=== PATIENT | female | born 1970 | race Caucasian/White ===

== ENCOUNTER → 2018-11-10 09:52 | Outpatient (CLI) | payer MEDICARE, SELFPAY ==
[2018-11-10 11:13] LABS: Add Manual Diff / Slide Review NO; Basophils Absolute Auto 0 /uL (0-100); Basophils Percent Auto 0.4 % (0-2); Eosinophils Absolute Auto 300 /uL (0-450); Eosinophils Percent Auto 3.3 % (2-4); Hematocrit 41.2 % (36-46); Hemoglobin 13.7 g/dL (12.0-16.0); Lymphocytes Absolute Auto 2300 /uL (1100-4500); Lymphocytes Percent Auto 23.3 % (25-40); Mean Corpuscular HGB Conc 33.3 % (30-36); Mean Corpuscular Hemoglobin 28.2 PG (26-34); Mean Corpuscular Volume 84.7 fL (80-100); Monocytes Absolute Auto 700 /uL (0-900); Monocytes Percent Auto 6.7 % (3-14); Neutrophils Absolute Auto 6500 /uL (1500-7000); Neutrophils Percent Auto 66.3 % (50-75); Platelet Count 262 X10^3/uL (150-400); Red Blood Cell Count 4.87 X10^6/uL (4.0-5.2); White Blood Cell Count 9.8 X10^3/uL (4.5-11.0)
[2018-11-10 12:04] LABS: TSH w/ Reflex to FT4 1.93 uIU/mL (0.47-4.68)
[2018-11-10 12:22] LABS: Vitamin B12 399 pg/mL (239-931)
== END ==
PROVIDERS: PCP Specialist; Visit Provider Family Medicine
DX: F32.9 Major depressive disorder, single episode, unspecified (principal); R53.83 Other fatigue
CPT/HCPCS: 36415; 82607; 84443; 85025

== ENCOUNTER 2019-02-01 11:33 | Emergency (ER) | payer MEDICARE, SELFPAY ==
--- NOTE | 2019-02-01 11:46 | DI.RAD.S_ITS ---
PROCEDURE: XR CHEST 2V INDICATIONS: chest pain short of breath TECHNIQUE: 2 views of the chest were acquired. COMPARISON: Chest x-ray dated 08/05/11. FINDINGS: Surgical changes and devices: None. Lungs and pleura: Lungs are clear. No pleural effusions or pneumothorax. Mediastinum: Mediastinal contours are normal. Heart size is normal. Bones and chest wall: No suspicious bony abnormalities. Soft tissues appear unremarkable. IMPRESSION: Unremarkable chest. No acute cardiopulmonary process is suspected. Dictated by: Christian Donnelly M.D. on 02/01/2019 at 11:16 Approved by: Christian Donnelly M.D. on 02/01/2019 at 11:18
[2019-02-01 12:41] LABS: Bacteria Urine None Seen
[2019-02-01 12:49] LABS: Culture Indicated Urine Cult Not Indicated; RBC Urine 1-5/HPF (0-5/HPF); Squamous Epithelial Cell Urine 1-5 /HPF (0-5/HPF); WBC Urine 0-1/HPF (0-5/HPF)
[2019-02-01 13:03] LABS: Add Manual Diff / Slide Review NO; Basophils Absolute Auto 100 /uL (0-100); Basophils Percent Auto 0.8 % (0-2); Eosinophils Absolute Auto 200 /uL (0-450); Eosinophils Percent Auto 1.4 % (2-4); Lymphocytes Absolute Auto 3200 /uL (1100-4500); Lymphocytes Percent Auto 26.5 % (25-40); Mean Corpuscular HGB Conc 34.1 % (30-36); Mean Corpuscular Hemoglobin 28.2 PG (26-34); Mean Corpuscular Volume 82.7 fL (80-100); Monocytes Absolute Auto 1200 /uL (0-900); Monocytes Percent Auto 10.1 % (3-14); Neutrophils Absolute Auto 7500 /uL (1500-7000); Neutrophils Percent Auto 61.2 % (50-75); Platelet Count 318 X10^3/uL (150-400); Red Blood Cell Count 4.95 X10^6/uL (4.0-5.2); Red Cell Distribution Width 14.4 % (11.6-14.8); White Blood Cell Count 12.2 X10^3/uL (4.5-11.0)
[2019-02-01 13:11] LABS: Creatine Kinase 68 U/L (30-135)
--- NOTE | 2019-02-01 13:11 | ED.CHESTPAIN ---
HPI - Chest Pain <Silva Pearson, TRAVEL WRITER-BC - Last Filed: 02/01/19 18:28> General Chief Complaint: Chest Pain Stated Complaint: chest pain/dizzy/sob x6 days Time Seen by Provider: 02/01/19 12:20 Source: patient and family Mode of arrival: ambulatory Limitations: no limitations History of Present Illness HPI narrative: The patient is a 48-year-old female Nonsmoker with history of depression, PTSD and chronic migraine who presents with multiple complaints for 7 days. She states she has been congested, had shortness of breath, no cough, right-sided chest pain, left-sided neck pain, jaw pain when yawning and hypoglycemic episodes for 1 week. She states she has not checked her blood sugar, but she know she is hypoglycemic because she feels weak. She states that she saw her primary care provider on the , who prescribed Augmentin for an upper respiratory infection. She states she has not taken the whole course of this. She states they also gave her nebulizer treatment in the office. She states she has not followed up with her primary care provider since feeling worse. She states that she has neck pain and chest pain upon deep inspiration. She states she is dizzy and woozy. She has been taking Sudafed, her antibiotics off and on, no nasal sprays or other [id number]-srhbrqp medications. She states that her migraine specialist has been changing her medications, but she is not exactly sure what the changes are. She denies any abdominal pain dysuria urgency or frequency. She states that her chest pain is on the right side of her lower ribs. The patient later told me that she thought was related to her anxiety. She did not take any of her anxiety medication. The patient denies any risk factors of clot such as recent surgery, recent travel, hormone use, etc or personal history of blood clots. Related Data Home Medications Medication Instructions Recorded Confirmed fluoxetine [Sarafem] #0 11/27/17 11/10/18 gabapentin [Neurontin] #0 11/27/17 11/10/18 montelukast #0 11/27/17 11/10/18 prochlorperazine maleate #0 11/27/17 11/10/18 [Compazine] prazosin 1 mg capsule 5 mg PO QHS cap 12/10/18 Previous Rx's Medication Instructions Recorded sumatriptan 6 mg/0.5 mL 6 mg SUBCUT PRN PRN #10 syr 06/03/18 subcutaneous pen injector propranolol 20 mg tablet 20 mg PO BID #90 tab 10/22/18 verapamil ER 120 mg 24 hr 120 mg PO DAILY #30 cap 11/10/18 capsule,extended release clonazepam 0.5 mg tablet 0.25 mg PO ONCE #10 tab 01/27/19 sumatriptan 100 mg tablet 100 mg PO ONCE #10 tab 01/27/19 verapamil ER 120 mg 24 hr 120 mg PO BID #60 cap 01/27/19 capsule,extended release hydroxyzine HCl 50 mg PO TID-QID PRN #20 tab 02/01/19 Allergies Allergy/AdvReac Type Severity Reaction Status Date / Time banana [BANANA] Allergy Unknown MOUTH Verified 01/27/19 13:39 BLISTERS ciprofloxacin [From CIPRO] Allergy Unknown STOMACH Verified 01/27/19 13:39 PAIN walnut [WALNUT] Allergy Unknown MOUTH Verified 01/27/19 13:39 BLISTERS Review of Systems [facility] - Last Filed: 02/01/19 18:28> Review of Systems GENERAL: See HPI HEENT: See HPI RESPIRATORY: See HPI CARDIOVASCULAR: See HPI GASTROINTESTINAL: Denies nausea, vomiting, abdominal pain, diarrhea, constipation, melena. : Denies dysuria, frequency, incontinence, hematuria, urinary retention. MUSCULOSKELETAL: denies weakness, joint pain, or bony pain SKIN: Denies rash, skin lesions, or other NEUROLOGIC: Denies weakness, headache, numbness, change in speech, confusion, seizures, incoordination. PSYCHIATRIC: No concerning psychosocial issues. 12 point review of systems is negative except for those stated above PFSH <VY Servin - Last Filed: 02/01/19 18:28> Social History Smoking Status: Never smoker Social History Smoking Status: Never smoker Exam <VY Servin - Last Filed: 02/01/19 18:28> Narrative Exam Narrative: GENERAL: Female lying on stretcher in no acute distress HEAD: Atraumatic. Normocephalic. No temporal or scalp tenderness. EYES: Pupils equal round and reactive. Extraocular motions intact. No scleral icterus. No injection or drainage. ENT: Nose without bleeding, purulent drainage or septal hematoma. Throat without erythema, tonsillar hypertrophy or exudate. Uvula midline. Airway patent. Bilateral cerumen impaction noted. No cobblestoning noted. NECK: Trachea midline. No JVD or lymphadenopathy. Supple, nontender, no meningeal signs. CARDIOVASCULAR: Regular rate and rhythm RESPIRATORY: Clear to auscultation. Breath sounds equal bilaterally. No wheezes, rales, or rhonchi. No cough. No increased respiratory effort. No stridor. No accessory muscle use. Slight pain on lateral chest wall compression. No pain on anterior posterior chest wall compression. GASTROINTESTINAL: Abdomen soft, non-tender, nondistended. No hepato-splenomegaly, or palpable masses. No guarding. EXTREMITIES: No clubbing, cyanosis, or edema. No joint tenderness, effusion, or edema noted. BACK: Nontender without deformity or crepitance. No flank tenderness. NEURO: AOx3. SKIN: No rash or erythema. Initial Vital Signs Initial Vital Signs: Vital Signs Temperature 98.8 F 02/01/19 13:32 Pulse Rate 63 02/01/19 13:32 Respiratory Rate 14 02/01/19 13:32 Blood Pressure 116/54 L 02/01/19 13:32 Pulse Oximetry 100 02/01/19 13:32 <Kitty Pat DO - Last Filed: 02/05/19 10:53> Initial Vital Signs Initial Vital Signs: Vital Signs Temperature 98.8 F 02/01/19 13:32 Pulse Rate 63 02/01/19 13:32 Respiratory Rate 14 02/01/19 13:32 Blood Pressure 116/54 L 02/01/19 13:32 Pulse Oximetry 100 02/01/19 13:32 Scores <ERICK Servin - Last Filed: 02/01/19 18:28> PERC Score Age greater than or equal to 50 years: Yes Heart rate greater than or equal to 100 bpm: Yes Room Air O2 Sat less than 95%: Yes Unilateral leg swelling: Yes Recent trauma or surgery: Yes Hemoptysis: Yes Prior PE or DVT: Yes Hormone Use: Yes Total PERC Score: 8 Wells' Criteria for PE Clinical signs and symptoms of PE: No PE is #1 Dx or equally likely: No Heart rate > 100: No Immobilization at least 3 days or surg in previous 4 weeks: No History of PE or DVT: No Hemoptysis: No Malignancy w/Treatment within 6 months or palliative: No Wells' PE Score total: 0 Course <JV Servin-BC - Last Filed: 02/01/19 18:28> Orders Ordered: Discontinued Medications Albuterol/Ipratropium (Duoneb) 3 ml INH NOW ONE Stop: 02/01/19 11:46 Last Admin: 02/01/19 14:20 Dose: Not Given Albuterol/Ipratropium (Duoneb) 3 ml INH NOW ONE Stop: 02/01/19 15:41 Last Admin: 02/01/19 15:42 Dose: 3 ml Hydroxyzine Pamoate (Vistaril) 50 mg PO NOW ONE Stop: 02/01/19 16:27 Last Admin: 02/01/19 16:48 Dose: 50 mg Ketorolac Tromethamine (Toradol) 30 mg IV NOW ONE Stop: 02/01/19 14:01 Last Admin: 02/01/19 14:21 Dose: 30 mg Vital Signs - 8 hr 02/01/19 13:32 02/01/19 14:16 02/01/19 14:46 Temperature 98.8 F Pulse Rate 63 75 69 Respiratory Rate 14 18 12 Blood Pressure 116/54 L Blood Pressure [Left Arm] 108/55 L 118/58 L Pulse Oximetry 100 100 97 02/01/19 15:42 02/01/19 17:00 Temperature Pulse Rate 65 Respiratory Rate 16 Blood Pressure Blood Pressure [Left Arm] 116/60 Pulse Oximetry 96 98 <Kitty Pat DO - Last Filed: 02/05/19 10:53> Orders Ordered: Discontinued Medications Albuterol/Ipratropium (Duoneb) 3 ml INH NOW ONE Stop: 02/01/19 11:46 Last Admin: 02/01/19 14:20 Dose: Not Given Albuterol/Ipratropium (Duoneb) 3 ml INH NOW ONE Stop: 02/01/19 15:41 Last Admin: 02/01/19 15:42 Dose: 3 ml Hydroxyzine Pamoate (Vistaril) 50 mg PO NOW ONE Stop: 02/01/19 16:27 Last Admin: 02/01/19 16:48 Dose: 50 mg Ketorolac Tromethamine (Toradol) 30 mg IV NOW ONE Stop: 02/01/19 14:01 Last Admin: 02/01/19 14:21 Dose: 30 mg Vital Signs - 8 hr 02/01/19 13:32 02/01/19 14:16 02/01/19 14:46 Temperature 98.8 F Pulse Rate 63 75 69 Respiratory Rate 14 18 12 Blood Pressure 116/54 L Blood Pressure [Left Arm] 108/55 L 118/58 L Pulse Oximetry 100 100 97 02/01/19 15:42 02/01/19 17:00 Temperature Pulse Rate 65 Respiratory Rate 16 Blood Pressure Blood Pressure [Left Arm] 116/60 Pulse Oximetry 96 98 MDM - Chest Pain <JV Servin-BC - Last Filed: 02/01/19 18:28> Lab Data Result diagrams: 02/01/19 12:45 02/01/19 12:45 Lab Results 02/01/19 02/01/19 02/01/19 Range/Units 12:10 12:10 12:45 WBC 12.2 H (4.5-11.0) X10^3/uL RBC 4.95 (4.0-5.2) X10^6/uL Hgb 14.0 (12.0-16.0) g/dL Hct 41.0 (36-46) % MCV 82.7 (80-100) fL MCH 28.2 (26-34) PG MCHC 34.1 (30-36) % RDW 14.4 (11.6-14.8) % Plt Count 318 (150-400) X10^3/uL Neut % (Auto) 61.2 (50-75) % Lymph % (Auto) 26.5 (25-40) % [place] % (Auto) 10.1 (3-14) % Eos % (Auto) 1.4 L (2-4) % Baso % (Auto) 0.8 (0-2) % Neut # (Auto) 7500 H (7786-6893) /uL Lymph # (Auto) 3200 (2232-3679) /uL [place] # (Auto) 1200 H (0-900) /uL Eos # (Auto) 200 (0-450) /uL Baso # (Auto) 100 (0-100) /uL Sodium (137-145) mmol/L Potassium (3.4-5.1) mmol/L Chloride (98-107) mmol/L Carbon Dioxide (22-32) mmol/L BUN (7-17) mg/dL Creatinine (0.52-1.04) mg/dL Estimated GFR (>60) mL/min BUN/Creatinine Ratio (6-22) Glucose (70-100) mg/dL Calcium (8.4-10.2) mg/dL Total Bilirubin (0.2-1.3) mg/dL AST (14-36) IU/L ALT (9-52) IU/L Alkaline Phosphatase (38-126) U/L Total Creatine Kinase (30-135) U/L CK-MB (CK-2) CK-MB (CK-2) Rel Index Troponin I (0.01-0.034) ng/mL B-Natriuretic Peptide < 100 (<100) Total Protein (6.3-8.2) g/dL Albumin (3.5-5.0) g/dL Globulin (1.7-4.1) g/dL Albumin/Globulin Ratio (1.0-2.8) Procalcitonin (<0.5) ng/mL Urine RBC 1-5/hpf (0-5/HPF) Urine WBC 0-1/hpf (0-5/HPF) Ur Squamous Epith Cells 1-5 /hpf (0-5/HPF) Urine Bacteria None seen (None) Ur Culture Indicated? Cult not indicated Urine Test Negative (Negative) 02/01/19 02/01/19 02/01/19 Range/Units 12:45 12:45 12:45 WBC (4.5-11.0) X10^3/uL RBC (4.0-5.2) X10^6/uL Hgb (12.0-16.0) g/dL Hct (36-46) % MCV (80-100) fL MCH (26-34) PG MCHC (30-36) % RDW (11.6-14.8) % Plt Count (150-400) X10^3/uL Neut % (Auto) (50-75) % Lymph % (Auto) (25-40) % [place] % (Auto) (3-14) % Eos % (Auto) (2-4) % Baso % (Auto) (0-2) % Neut # (Auto) (6696-8700) /uL Lymph # (Auto) (2343-2113) /uL [place] # (Auto) (0-900) /uL Eos # (Auto) (0-450) /uL Baso # (Auto) (0-100) /uL Sodium 141 (137-145) mmol/L Potassium 3.9 (3.4-5.1) mmol/L Chloride 107 (98-107) mmol/L Carbon Dioxide 23 (22-32) mmol/L BUN 17 (7-17) mg/dL Creatinine 0.90 (0.52-1.04) mg/dL Estimated GFR > 60.0 (>60) mL/min BUN/Creatinine Ratio 18.9 (6-22) Glucose 92 (70-100) mg/dL Calcium 9.5 (8.4-10.2) mg/dL Total Bilirubin 0.5 (0.2-1.3) mg/dL AST 30 (14-36) IU/L ALT 42 (9-52) IU/L Alkaline Phosphatase 90 (38-126) U/L Total Creatine Kinase 68 (30-135) U/L CK-MB (CK-2) TNP CK-MB (CK-2) Rel Index TNP Troponin I < 0.012 (0.01-0.034) ng/mL B-Natriuretic Peptide (<100) Total Protein 7.7 (6.3-8.2) g/dL Albumin 4.0 (3.5-5.0) g/dL Globulin 3.7 (1.7-4.1) g/dL Albumin/Globulin Ratio 1.1 (1.0-2.8) Procalcitonin < 0.05 (<0.5) ng/mL Urine RBC (0-5/HPF) Urine WBC (0-5/HPF) Ur Squamous Epith Cells (0-5/HPF) Urine Bacteria (None) Ur Culture Indicated? Urine Test (Negative) 02/01/19 Range/Units 15:33 WBC (4.5-11.0) X10^3/uL RBC (4.0-5.2) X10^6/uL Hgb (12.0-16.0) g/dL Hct (36-46) % MCV (80-100) fL MCH (26-34) PG MCHC (30-36) % RDW (11.6-14.8) % Plt Count (150-400) X10^3/uL Neut % (Auto) (50-75) % Lymph % (Auto) (25-40) % [place] % (Auto) (3-14) % Eos % (Auto) (2-4) % Baso % (Auto) (0-2) % Neut # (Auto) (4354-1724) /uL Lymph # (Auto) (4221-4324) /uL [place] # (Auto) (0-900) /uL Eos # (Auto) (0-450) /uL Baso # (Auto) (0-100) /uL Sodium (137-145) mmol/L Potassium (3.4-5.1) mmol/L Chloride (98-107) mmol/L Carbon Dioxide (22-32) mmol/L BUN (7-17) mg/dL Creatinine (0.52-1.04) mg/dL Estimated GFR (>60) mL/min BUN/Creatinine Ratio (6-22) Glucose (70-100) mg/dL Calcium (8.4-10.2) mg/dL Total Bilirubin (0.2-1.3) mg/dL AST (14-36) IU/L ALT (9-52) IU/L Alkaline Phosphatase (38-126) U/L Total Creatine Kinase 68 (30-135) U/L CK-MB (CK-2) TNP CK-MB (CK-2) Rel Index TNP Troponin I < 0.012 (0.01-0.034) ng/mL B-Natriuretic Peptide (<100) Total Protein (6.3-8.2) g/dL Albumin (3.5-5.0) g/dL Globulin (1.7-4.1) g/dL Albumin/Globulin Ratio (1.0-2.8) Procalcitonin (<0.5) ng/mL Urine RBC (0-5/HPF) Urine WBC (0-5/HPF) Ur Squamous Epith Cells (0-5/HPF) Urine Bacteria (None) Ur Culture Indicated? Urine Test (Negative) Urine Dip Bedside Urine Glucose Negative Bedside Urine Bilirubin - Negative Bedside Urine Ketone - Negative Urine Specific [place] 1.015 Bedside Urine Occult Blood +/- Bedside Urine pH 8.5 Bedside Urine Protein - Negative Bedside Urine Urobilinogen - Negative Bedside Urine Nitrite - Negative Bedside Urine Leukocytes - Negative Esterase Imaging Data Chest x-ray: Radiologist's impression: [address] [address] XRay Report Signed Patient: Katia Daigle [facility]#: [id number] : 1970Acct:[id number] Age/Sex: 48 / FDate of Service: 02/01/19 Loc: ED Accession Number: [id number] Procedure: XR chest 2V Ordering Provider: Kitty Pat D.O. PROCEDURE: XR CHEST 2V INDICATIONS: chest pain short of breath TECHNIQUE: 2 views of the chest were acquired. COMPARISON: Chest x-ray dated 08/05/11. FINDINGS: Surgical changes and devices: None. Lungs and pleura: Lungs are clear. No pleural effusions or pneumothorax. Mediastinum: Mediastinal contours are normal. Heart size is normal. Bones and chest wall: No suspicious bony abnormalities. Soft tissues appear unremarkable. IMPRESSION: Unremarkable chest. No acute cardiopulmonary process is suspected. Dictated by: Christian Donnelly M.D. on 02/01/2019 at 11:16 Approved by: Christian Donnelly M.D. on 02/01/2019 at 11:18 ECG Data Attestation: I personally reviewed and interpreted this ECG as follows: Interpretation: Sinus rhythm. Ventricular rate 67. No ST elevation or depression. No ectopy noted. viewed by Dr Pat MDM Narrative Medical decision making narrative: The patient is a 48-year-old female who presents with various complaints midway through being treated for an upper respiratory infection with Augmentin. She states she has chest pain, but that improved with Toradol use she had a normal EKG and 2-troponins. She had a normal chest x-ray. She did complain of shortness of breath, but later stated that she thinks that is due to anxiety. This went away after Vistaril administration. Her cerumen impactions were flushed in the emergency department she felt her dizziness improved. The patient later requested to be discharged. She stated she did not want any further workup at this point time. She felt much improved after Vistaril. I did give her a prescription of it. I discussed at length return precautions to the emergency department including chest pain, shortness of breath, concern of heart attack or stroke or acute concerns. Encouraged patient to follow up with primary care physician tomorrow. She had no questions or concerns upon discharge remained hemodynamically stable and non toxic appearing throughout her stay in the ER. <Kitty Pat, DO - Last Filed: 02/05/19 10:53> Lab Data Lab Results 02/01/19 02/01/19 02/01/19 Range/Units 12:10 12:10 12:45 WBC 12.2 H (4.5-11.0) X10^3/uL RBC 4.95 (4.0-5.2) X10^6/uL Hgb 14.0 (12.0-16.0) g/dL Hct 41.0 (36-46) % MCV 82.7 (80-100) fL MCH 28.2 (26-34) PG MCHC 34.1 (30-36) % RDW 14.4 (11.6-14.8) % Plt Count 318 (150-400) X10^3/uL Neut % (Auto) 61.2 (50-75) % Lymph % (Auto) 26.5 (25-40) % [place] % (Auto) 10.1 (3-14) % Eos % (Auto) 1.4 L (2-4) % Baso % (Auto) 0.8 (0-2) % Neut # (Auto) 7500 H (5768-9676) /uL Lymph # (Auto) 3200 (8808-1182) /uL [place] # (Auto) 1200 H (0-900) /uL Eos # (Auto) 200 (0-450) /uL Baso # (Auto) 100 (0-100) /uL Sodium (137-145) mmol/L Potassium (3.4-5.1) mmol/L Chloride (98-107) mmol/L Carbon Dioxide (22-32) mmol/L BUN (7-17) mg/dL Creatinine (0.52-1.04) mg/dL Estimated GFR (>60) mL/min BUN/Creatinine Ratio (6-22) Glucose (70-100) mg/dL Calcium (8.4-10.2) mg/dL Total Bilirubin (0.2-1.3) mg/dL AST (14-36) IU/L ALT (9-52) IU/L Alkaline Phosphatase (38-126) U/L Total Creatine Kinase (30-135) U/L CK-MB (CK-2) CK-MB (CK-2) Rel Index Troponin I (0.01-0.034) ng/mL B-Natriuretic Peptide < 100 (<100) Total Protein (6.3-8.2) g/dL Albumin (3.5-5.0) g/dL Globulin (1.7-4.1) g/dL Albumin/Globulin Ratio (1.0-2.8) Procalcitonin (<0.5) ng/mL Urine RBC 1-5/hpf (0-5/HPF) Urine WBC 0-1/hpf (0-5/HPF) Ur Squamous Epith Cells 1-5 /hpf (0-5/HPF) Urine Bacteria None seen (None) Ur Culture Indicated? Cult not indicated Urine Test Negative (Negative) 02/01/19 02/01/19 02/01/19 Range/Units 12:45 12:45 12:45 WBC (4.5-11.0) X10^3/uL RBC (4.0-5.2) X10^6/uL Hgb (12.0-16.0) g/dL Hct (36-46) % MCV (80-100) fL MCH (26-34) PG MCHC (30-36) % RDW (11.6-14.8) % Plt Count (150-400) X10^3/uL Neut % (Auto) (50-75) % Lymph % (Auto) (25-40) % [place] % (Auto) (3-14) % Eos % (Auto) (2-4) % Baso % (Auto) (0-2) % Neut # (Auto) (1967-4182) /uL Lymph # (Auto) (1698-1433) /uL [place] # (Auto) (0-900) /uL Eos # (Auto) (0-450) /uL Baso # (Auto) (0-100) /uL Sodium 141 (137-145) mmol/L Potassium 3.9 (3.4-5.1) mmol/L Chloride 107 (98-107) mmol/L Carbon Dioxide 23 (22-32) mmol/L BUN 17 (7-17) mg/dL Creatinine 0.90 (0.52-1.04) mg/dL Estimated GFR > 60.0 (>60) mL/min BUN/Creatinine Ratio 18.9 (6-22) Glucose 92 (70-100) mg/dL Calcium 9.5 (8.4-10.2) mg/dL Total Bilirubin 0.5 (0.2-1.3) mg/dL AST 30 (14-36) IU/L ALT 42 (9-52) IU/L Alkaline Phosphatase 90 (38-126) U/L Total Creatine Kinase 68 (30-135) U/L CK-MB (CK-2) TNP CK-MB (CK-2) Rel Index TNP Troponin I < 0.012 (0.01-0.034) ng/mL B-Natriuretic Peptide (<100) Total Protein 7.7 (6.3-8.2) g/dL Albumin 4.0 (3.5-5.0) g/dL Globulin 3.7 (1.7-4.1) g/dL Albumin/Globulin Ratio 1.1 (1.0-2.8) Procalcitonin < 0.05 (<0.5) ng/mL Urine RBC (0-5/HPF) Urine WBC (0-5/HPF) Ur Squamous Epith Cells (0-5/HPF) Urine Bacteria (None) Ur Culture Indicated? Urine Test (Negative) 02/01/19 Range/Units 15:33 WBC (4.5-11.0) X10^3/uL RBC (4.0-5.2) X10^6/uL Hgb (12.0-16.0) g/dL Hct (36-46) % MCV (80-100) fL MCH (26-34) PG MCHC (30-36) % RDW (11.6-14.8) % Plt Count (150-400) X10^3/uL Neut % (Auto) (50-75) % Lymph % (Auto) (25-40) % [place] % (Auto) (3-14) % Eos % (Auto) (2-4) % Baso % (Auto) (0-2) % Neut # (Auto) (0578-3198) /uL Lymph # (Auto) (9112-2950) /uL [place] # (Auto) (0-900) /uL Eos # (Auto) (0-450) /uL Baso # (Auto) (0-100) /uL Sodium (137-145) mmol/L Potassium (3.4-5.1) mmol/L Chloride (98-107) mmol/L Carbon Dioxide (22-32) mmol/L BUN (7-17) mg/dL Creatinine (0.52-1.04) mg/dL Estimated GFR (>60) mL/min BUN/Creatinine Ratio (6-22) Glucose (70-100) mg/dL Calcium (8.4-10.2) mg/dL Total Bilirubin (0.2-1.3) mg/dL AST (14-36) IU/L ALT (9-52) IU/L Alkaline Phosphatase (38-126) U/L Total Creatine Kinase 68 (30-135) U/L CK-MB (CK-2) TNP CK-MB (CK-2) Rel Index TNP Troponin I < 0.012 (0.01-0.034) ng/mL B-Natriuretic Peptide (<100) Total Protein (6.3-8.2) g/dL Albumin (3.5-5.0) g/dL Globulin (1.7-4.1) g/dL Albumin/Globulin Ratio (1.0-2.8) Procalcitonin (<0.5) ng/mL Urine RBC (0-5/HPF) Urine WBC (0-5/HPF) Ur Squamous Epith Cells (0-5/HPF) Urine Bacteria (None) Ur Culture Indicated? Urine Test (Negative) Urine Dip Bedside Urine Glucose Negative Bedside Urine Bilirubin - Negative Bedside Urine Ketone - Negative Urine Specific [place] 1.015 Bedside Urine Occult Blood +/- Bedside Urine pH 8.5 Bedside Urine Protein - Negative Bedside Urine Urobilinogen - Negative Bedside Urine Nitrite - Negative Bedside Urine Leukocytes - Negative Esterase ECG Data Attestation: I personally reviewed and interpreted this ECG as follows: Prior ECG tracings: not available for review Interpretation: Artifact noted sinus rhythm rate [address] changes Discharge Plan Departure Patient Disposition: Home Clinical Impression: Atypical chest pain, Breath shortness, Bilateral impacted cerumen Discharge Date/Time: 02/01/19 17:36 Interventions: ED Discharge Assessment Last Done: 02/01/19 17:36 Instructions: DI for Cerumen Impaction, DI for Atypical Chest Pain, DI for Shortness of Breath Activity Restrictions/Additional Instructions: Today you had two normal sets of heart enzymes, a normal EKG, normal chest x-ray. We tried a medication for anxiety which seemed to help your shortness of breath. I believe that a lot of her symptoms are related to the upper respiratory tract infection your being treated for by your primary care provider. Please continue this antibiotic. I also suggest adding a Neti pot and Flonase. You can take the as needed medication for anxiety. Do not combine with Benadryl or other antihistamines. Come back to the emergency department for any acute concerns such as chest pain shortness of breath concern of heart attack or stroke. Please follow up with primary care provider soon as possible. Please rest and push fluids at home. Prescriptions: New hydroxyzine HCl 50 mg tablet 50 mg PO TID-QID PRN (Reason: anxiety) Qty: 20 RF: 0 No Action prochlorperazine maleate [Compazine] 10 MG tablet Qty: 0 RF: 0 gabapentin [Neurontin] 400 MG capsule Qty: 0 RF: 0 montelukast 10 MG tablet Qty: 0 RF: 0 fluoxetine [Sarafem] 20 MG tablet Qty: 0 RF: 0 sumatriptan succinate 6 mg/0.5 mL pen injector 6 mg SUBCUT PRN PRN (Reason: migraine headache) Qty: 10 RF: 3 propranolol 20 mg tablet 20 mg PO BID Qty: 90 RF: 2 verapamil 120 mg capsule,ext rel. pellets 24 hr 120 mg PO DAILY Qty: 30 RF: 2 prazosin 1 mg capsule 5 mg PO QHS RF: 0 clonazepam 0.5 mg tablet 0.25 mg PO ONCE Qty: 10 RF: 1 sumatriptan succinate 100 mg tablet 100 mg PO ONCE Qty: 10 RF: 1 verapamil 120 mg capsule,ext rel. pellets 24 hr 120 mg PO BID Qty: 60 RF: 2 Referrals: Waqar Ortiz MD [Primary Care Provider] - <Kitty Pat DO - Last Filed: 02/05/19 10:53> [facility] ED Attending [employer] Attestation: I was immediately available in the department for consultation. Documentation has been reviewed. I agree with assessment and plan.
[2019-02-01 13:12] LABS: Alanine Aminotransferase 42 IU/L (9-52); Albumin Globulin Ratio 1.1 (1.0-2.8); Alkaline Phosphatase 90 U/L (38-126); Aspartate Aminotransferase 30 IU/L (14-36); BUN Creatinine Ratio 18.9 (6-22); Bilirubin Total 0.5 mg/dL (0.2-1.3); Blood Urea Nitrogen 17 mg/dL (7-17); Calcium 9.5 mg/dL (8.4-10.2); Carbon Dioxide 23 mmol/L (22-32); Chloride 107 mmol/L (98-107); Estimated Glomerular Filt Rate > 60.0 mL/min (>60); Globulin 3.7 g/dL (1.7-4.1); Glucose 92 mg/dL (70-100); HEMOLYSIS < 15 (0-50); Potassium 3.9 mmol/L (3.4-5.1); Sodium 141 mmol/L (137-145); Total Protein 7.7 g/dL (6.3-8.2)
--- NOTE | 2019-02-01 13:14 | ED_ITS ---
HPI - Chest Pain <Silva Pearson, FLIGHT HOSTESS-BC - Last Filed: 02/01/19 18:28> General Chief Complaint: Chest Pain Stated Complaint: chest pain/dizzy/sob x6 days Time Seen by Provider: 02/01/19 12:20 Source: patient and family Mode of arrival: ambulatory Limitations: no limitations History of Present Illness HPI narrative: The patient is a 48-year-old female Nonsmoker with history of depression, PTSD and chronic migraine who presents with multiple complaints for 7 days. She states she has been congested, had shortness of breath, no cough, right-sided chest pain, left-sided neck pain, jaw pain when yawning and hypoglycemic episodes for 1 week. She states she has not checked her blood sugar, but she know she is hypoglycemic because she feels weak. She states that she saw her primary care provider on the , who prescribed Augmentin for an upper respiratory infection. She states she has not taken the whole course of this. She states they also gave her nebulizer treatment in the office. She states she has not followed up with her primary care provider since feeling worse. She states that she has neck pain and chest pain upon deep inspiration. She states she is dizzy and woozy. She has been taking Sudafed, her antibiotics off and on, no nasal sprays or other [id number] medications. She states that her migraine specialist has been changing her medications, but she is not exactly sure what the changes are. She denies any abdominal pain dysuria urgency or frequency. She states that her chest pain is on the right side of her lower ribs. The patient later told me that she thought was related to her anxiety. She did not take any of her anxiety medication. The patient denies any risk factors of clot such as recent surgery, recent travel, hormone use, etc or personal history of blood clots. Related Data Home Medications Medication Instructions Recorded Confirmed fluoxetine [Sarafem] #0 11/27/17 11/10/18 gabapentin [Neurontin] #0 11/27/17 11/10/18 montelukast #0 11/27/17 11/10/18 prochlorperazine maleate #0 11/27/17 11/10/18 [Compazine] prazosin 1 mg capsule 5 mg PO QHS cap 12/10/18 Previous Rx's Medication Instructions Recorded sumatriptan 6 mg/0.5 mL 6 mg SUBCUT PRN PRN #10 syr 06/03/18 subcutaneous pen injector propranolol 20 mg tablet 20 mg PO BID #90 tab 10/22/18 verapamil ER 120 mg 24 hr 120 mg PO DAILY #30 cap 11/10/18 capsule,extended release clonazepam 0.5 mg tablet 0.25 mg PO ONCE #10 tab 01/27/19 sumatriptan 100 mg tablet 100 mg PO ONCE #10 tab 01/27/19 verapamil ER 120 mg 24 hr 120 mg PO BID #60 cap 01/27/19 capsule,extended release hydroxyzine HCl 50 mg PO TID-QID PRN #20 tab 02/01/19 Allergies Allergy/AdvReac Type Severity Reaction Status Date / Time banana [BANANA] Allergy Unknown MOUTH Verified 01/27/19 13:39 BLISTERS ciprofloxacin [From CIPRO] Allergy Unknown STOMACH Verified 01/27/19 13:39 PAIN walnut [WALNUT] Allergy Unknown MOUTH Verified 01/27/19 13:39 BLISTERS Review of Systems <[facility] - Last Filed: 02/01/19 18:28> Review of Systems GENERAL: See HPI HEENT: See HPI RESPIRATORY: See HPI CARDIOVASCULAR: See HPI GASTROINTESTINAL: Denies nausea, vomiting, abdominal pain, diarrhea, constipation, melena. : Denies dysuria, frequency, incontinence, hematuria, urinary retention. MUSCULOSKELETAL: denies weakness, joint pain, or bony pain SKIN: Denies rash, skin lesions, or other NEUROLOGIC: Denies weakness, headache, numbness, change in speech, confusion, seizures, incoordination. PSYCHIATRIC: No concerning psychosocial issues. 12 point review of systems is negative except for those stated above PFSH <VY Servin - Last Filed: 02/01/19 18:28> Social History Smoking Status: Never smoker Social History Smoking Status: Never smoker Exam <VY Servin - Last Filed: 02/01/19 18:28> Narrative Exam Narrative: GENERAL: Female lying on stretcher in no acute distress HEAD: Atraumatic. Normocephalic. No temporal or scalp tenderness. EYES: Pupils equal round and reactive. Extraocular motions intact. No scleral icterus. No injection or drainage. ENT: Nose without bleeding, purulent drainage or septal hematoma. Throat without erythema, tonsillar hypertrophy or exudate. Uvula midline. Airway patent. Bilateral cerumen impaction noted. No cobblestoning noted. NECK: Trachea midline. No JVD or lymphadenopathy. Supple, nontender, no meningeal signs. CARDIOVASCULAR: Regular rate and rhythm RESPIRATORY: Clear to auscultation. Breath sounds equal bilaterally. No wheezes, rales, or rhonchi. No cough. No increased respiratory effort. No stridor. No accessory muscle use. Slight pain on lateral chest wall compression. No pain on anterior posterior chest wall compression. GASTROINTESTINAL: Abdomen soft, non-tender, nondistended. No hepato- splenomegaly, or palpable masses. No guarding. EXTREMITIES: No clubbing, cyanosis, or edema. No joint tenderness, effusion, or edema noted. BACK: Nontender without deformity or crepitance. No flank tenderness. NEURO: AOx3. SKIN: No rash or erythema. Initial Vital Signs Initial Vital Signs: Vital Signs Temperature 98.8 F 02/01/19 13:32 Pulse Rate 63 02/01/19 13:32 Respiratory Rate 14 02/01/19 13:32 Blood Pressure 116/54 L 02/01/19 13:32 Pulse Oximetry 100 02/01/19 13:32 <Kitty Pat DO - Last Filed: 02/05/19 10:53> Initial Vital Signs Initial Vital Signs: Vital Signs Temperature 98.8 F 02/01/19 13:32 Pulse Rate 63 02/01/19 13:32 Respiratory Rate 14 02/01/19 13:32 Blood Pressure 116/54 L 02/01/19 13:32 Pulse Oximetry 100 02/01/19 13:32 Scores <ERICK Servin - Last Filed: 02/01/19 18:28> PERC Score Age greater than or equal to 50 years: Yes Heart rate greater than or equal to 100 bpm: Yes Room Air O2 Sat less than 95%: Yes Unilateral leg swelling: Yes Recent trauma or surgery: Yes Hemoptysis: Yes Prior PE or DVT: Yes Hormone Use: Yes Total PERC Score: 8 Wells' Criteria for PE Clinical signs and symptoms of PE: No PE is #1 Dx or equally likely: No Heart rate > 100: No Immobilization at least 3 days or surg in previous 4 weeks: No History of PE or DVT: No Hemoptysis: No Malignancy w/Treatment within 6 months or palliative: No Wells' PE Score total: 0 Course <JV Servin-BC - Last Filed: 02/01/19 18:28> Orders Ordered: Discontinued Medications Albuterol/Ipratropium (Duoneb) 3 ml INH NOW ONE Stop: 02/01/19 11:46 Last Admin: 02/01/19 14:20 Dose: Not Given Albuterol/Ipratropium (Duoneb) 3 ml INH NOW ONE Stop: 02/01/19 15:41 Last Admin: 02/01/19 15:42 Dose: 3 ml Hydroxyzine Pamoate (Vistaril) 50 mg PO NOW ONE Stop: 02/01/19 16:27 Last Admin: 02/01/19 16:48 Dose: 50 mg Ketorolac Tromethamine (Toradol) 30 mg IV NOW ONE Stop: 02/01/19 14:01 Last Admin: 02/01/19 14:21 Dose: 30 mg Vital Signs - 8 hr 02/01/19 13:32 02/01/19 14:16 02/01/19 14:46 Temperature 98.8 F Pulse Rate 63 75 69 Respiratory Rate 14 18 12 Blood Pressure 116/54 L Blood Pressure [Left Arm] 108/55 L 118/58 L Pulse Oximetry 100 100 97 02/01/19 15:42 02/01/19 17:00 Temperature Pulse Rate 65 Respiratory Rate 16 Blood Pressure Blood Pressure [Left Arm] 116/60 Pulse Oximetry 96 98 <Kitty Pat DO - Last Filed: 02/05/19 10:53> Orders Ordered: Discontinued Medications Albuterol/Ipratropium (Duoneb) 3 ml INH NOW ONE Stop: 02/01/19 11:46 Last Admin: 02/01/19 14:20 Dose: Not Given Albuterol/Ipratropium (Duoneb) 3 ml INH NOW ONE Stop: 02/01/19 15:41 Last Admin: 02/01/19 15:42 Dose: 3 ml Hydroxyzine Pamoate (Vistaril) 50 mg PO NOW ONE Stop: 02/01/19 16:27 Last Admin: 02/01/19 16:48 Dose: 50 mg Ketorolac Tromethamine (Toradol) 30 mg IV NOW ONE Stop: 02/01/19 14:01 Last Admin: 02/01/19 14:21 Dose: 30 mg Vital Signs - 8 hr 02/01/19 13:32 02/01/19 14:16 02/01/19 14:46 Temperature 98.8 F Pulse Rate 63 75 69 Respiratory Rate 14 18 12 Blood Pressure 116/54 L Blood Pressure [Left Arm] 108/55 L 118/58 L Pulse Oximetry 100 100 97 02/01/19 15:42 02/01/19 17:00 Temperature Pulse Rate 65 Respiratory Rate 16 Blood Pressure Blood Pressure [Left Arm] 116/60 Pulse Oximetry 96 98 MDM - Chest Pain <JV Servin-BC - Last Filed: 02/01/19 18:28> Lab Data Result diagrams: 02/01/19 12:45 02/01/19 12:45 Lab Results 02/01/19 02/01/19 02/01/19 Range/Units 12:10 12:10 12:45 WBC 12.2 H (4.5-11.0) X10^3/uL RBC 4.95 (4.0-5.2) X10^6/uL Hgb 14.0 (12.0-16.0) g/dL Hct 41.0 (36-46) % MCV 82.7 (80-100) fL MCH 28.2 (26-34) PG MCHC 34.1 (30-36) % RDW 14.4 (11.6-14.8) % Plt Count 318 (150-400) X10^3/uL Neut % (Auto) 61.2 (50-75) % Lymph % (Auto) 26.5 (25-40) % Lewis % (Auto) 10.1 (3-14) % Eos % (Auto) 1.4 L (2-4) % Baso % (Auto) 0.8 (0-2) % Neut # (Auto) 7500 H (9139-0822) /uL Lymph # (Auto) 3200 (9440-7753) /uL Lewis # (Auto) 1200 H (0-900) /uL Eos # (Auto) 200 (0-450) /uL Baso # (Auto) 100 (0-100) /uL Sodium (137-145) mmol/L Potassium (3.4-5.1) mmol/L Chloride (98-107) mmol/L Carbon Dioxide (22-32) mmol/L BUN (7-17) mg/dL Creatinine (0.52-1.04) mg/dL Estimated GFR (>60) mL/min BUN/Creatinine Ratio (6-22) Glucose (70-100) mg/dL Calcium (8.4-10.2) mg/dL Total Bilirubin (0.2-1.3) mg/dL AST (14-36) IU/L ALT (9-52) IU/L Alkaline Phosphatase (38-126) U/L Total Creatine Kinase (30-135) U/L CK-MB (CK-2) CK-MB (CK-2) Rel Index Troponin I (0.01-0.034) ng/mL B-Natriuretic Peptide < 100 (<100) Total Protein (6.3-8.2) g/dL Albumin (3.5-5.0) g/dL Globulin (1.7-4.1) g/dL Albumin/Globulin Ratio (1.0-2.8) Procalcitonin (<0.5) ng/mL Urine RBC 1-5/hpf (0-5/HPF) Urine WBC 0-1/hpf (0-5/HPF) Ur Squamous Epith Cells 1-5 /hpf (0-5/HPF) Urine Bacteria None seen (None) Ur Culture Indicated? Cult not indicated Urine Test Negative (Negative) 02/01/19 02/01/19 02/01/19 Range/Units 12:45 12:45 12:45 WBC (4.5-11.0) X10^3/uL RBC (4.0-5.2) X10^6/uL Hgb (12.0-16.0) g/dL Hct (36-46) % MCV (80-100) fL MCH (26-34) PG MCHC (30-36) % RDW (11.6-14.8) % Plt Count (150-400) X10^3/uL Neut % (Auto) (50-75) % Lymph % (Auto) (25-40) % Lewis % (Auto) (3-14) % Eos % (Auto) (2-4) % Baso % (Auto) (0-2) % Neut # (Auto) (4663-5150) /uL Lymph # (Auto) (7516-1681) /uL Lewis # (Auto) (0-900) /uL Eos # (Auto) (0-450) /uL Baso # (Auto) (0-100) /uL Sodium 141 (137-145) mmol/L Potassium 3.9 (3.4-5.1) mmol/L Chloride 107 (98-107) mmol/L Carbon Dioxide 23 (22-32) mmol/L BUN 17 (7-17) mg/dL Creatinine 0.90 (0.52-1.04) mg/dL Estimated GFR > 60.0 (>60) mL/min BUN/Creatinine Ratio 18.9 (6-22) Glucose 92 (70-100) mg/dL Calcium 9.5 (8.4-10.2) mg/dL Total Bilirubin 0.5 (0.2-1.3) mg/dL AST 30 (14-36) IU/L ALT 42 (9-52) IU/L Alkaline Phosphatase 90 (38-126) U/L Total Creatine Kinase 68 (30-135) U/L CK-MB (CK-2) TNP CK-MB (CK-2) Rel Index TNP Troponin I < 0.012 (0.01-0.034) ng/mL B-Natriuretic Peptide (<100) Total Protein 7.7 (6.3-8.2) g/dL Albumin 4.0 (3.5-5.0) g/dL Globulin 3.7 (1.7-4.1) g/dL Albumin/Globulin Ratio 1.1 (1.0-2.8) Procalcitonin < 0.05 (<0.5) ng/mL Urine RBC (0-5/HPF) Urine WBC (0-5/HPF) Ur Squamous Epith Cells (0-5/HPF) Urine Bacteria (None) Ur Culture Indicated? Urine Test (Negative) 02/01/19 Range/Units 15:33 WBC (4.5-11.0) X10^3/uL RBC (4.0-5.2) X10^6/uL Hgb (12.0-16.0) g/dL Hct (36-46) % MCV (80-100) fL MCH (26-34) PG MCHC (30-36) % RDW (11.6-14.8) % Plt Count (150-400) X10^3/uL Neut % (Auto) (50-75) % Lymph % (Auto) (25-40) % Lewis % (Auto) (3-14) % Eos % (Auto) (2-4) % Baso % (Auto) (0-2) % Neut # (Auto) (0166-7978) /uL Lymph # (Auto) (8565-9810) /uL Lewis # (Auto) (0-900) /uL Eos # (Auto) (0-450) /uL Baso # (Auto) (0-100) /uL Sodium (137-145) mmol/L Potassium (3.4-5.1) mmol/L Chloride (98-107) mmol/L Carbon Dioxide (22-32) mmol/L BUN (7-17) mg/dL Creatinine (0.52-1.04) mg/dL Estimated GFR (>60) mL/min BUN/Creatinine Ratio (6-22) Glucose (70-100) mg/dL Calcium (8.4-10.2) mg/dL Total Bilirubin (0.2-1.3) mg/dL AST (14-36) IU/L ALT (9-52) IU/L Alkaline Phosphatase (38-126) U/L Total Creatine Kinase 68 (30-135) U/L CK-MB (CK-2) TNP CK-MB (CK-2) Rel Index TNP Troponin I < 0.012 (0.01-0.034) ng/mL B-Natriuretic Peptide (<100) Total Protein (6.3-8.2) g/dL Albumin (3.5-5.0) g/dL Globulin (1.7-4.1) g/dL Albumin/Globulin Ratio (1.0-2.8) Procalcitonin (<0.5) ng/mL Urine RBC (0-5/HPF) Urine WBC (0-5/HPF) Ur Squamous Epith Cells (0-5/HPF) Urine Bacteria (None) Ur Culture Indicated? Urine Test (Negative) Urine Dip Bedside Urine Glucose Negative Bedside Urine Bilirubin - Negative Bedside Urine Ketone - Negative Urine Specific [place] 1.015 Bedside Urine Occult Blood +/- Bedside Urine pH 8.5 Bedside Urine Protein - Negative Bedside Urine Urobilinogen - Negative Bedside Urine Nitrite - Negative Bedside Urine Leukocytes - Negative Esterase Imaging Data Chest x-ray: Radiologist's impression: [address] [id number] XRay Report Signed Patient: Katia Daigle BANNER#: [id number] : 1970Acct:[id number] Age/Sex: 48 / FDate of Service: 02/01/19 Loc: ED Accession Number: [id number] Procedure: XR chest 2V Ordering Provider: Kitty Pat D.O. PROCEDURE: XR CHEST 2V INDICATIONS: chest pain short of breath TECHNIQUE: 2 views of the chest were acquired. COMPARISON: Chest x-ray dated 08/05/11. FINDINGS: Surgical changes and devices: None. Lungs and pleura: Lungs are clear. No pleural effusions or pneumothorax. Mediastinum: Mediastinal contours are normal. Heart size is normal. Bones and chest wall: No suspicious bony abnormalities. Soft tissues appear unremarkable. IMPRESSION: Unremarkable chest. No acute cardiopulmonary process is suspected. Dictated by: Christian Donnelly M.D. on 02/01/2019 at 11:16 Approved by: Christian Donnelly M.D. on 02/01/2019 at 11:18 ECG Data Attestation: I personally reviewed and interpreted this ECG as follows: Interpretation: Sinus rhythm. Ventricular rate 67. No ST elevation or depression. No ectopy noted. viewed by Dr Pat MDM Narrative Medical decision making narrative: The patient is a 48-year-old female who presents with various complaints midway through being treated for an upper respiratory infection with Augmentin. She states she has chest pain, but that improved with Toradol use she had a normal EKG and 2-troponins. She had a normal chest x-ray. She did complain of shortness of breath, but later stated that she thinks that is due to anxiety. This went away after Vistaril administration. Her cerumen impactions were flushed in the emergency department she felt her dizziness improved. The patient later requested to be discharged. She stated she did not want any further workup at this point time. She felt much improved after Vistaril. I did give her a prescription of it. I discussed at length return precautions to the emergency department including chest pain, shortness of breath, concern of heart attack or stroke or acute concerns. Encouraged patient to follow up with primary care physician tomorrow. She had no questions or concerns upon discharge remained hemodynamically stable and non toxic appearing throughout her stay in the ER. <Kitty Pat, DO - Last Filed: 02/05/19 10:53> Lab Data Lab Results 02/01/19 02/01/19 02/01/19 Range/Units 12:10 12:10 12:45 WBC 12.2 H (4.5-11.0) X10^3/uL RBC 4.95 (4.0-5.2) X10^6/uL Hgb 14.0 (12.0-16.0) g/dL Hct 41.0 (36-46) % MCV 82.7 (80-100) fL MCH 28.2 (26-34) PG MCHC 34.1 (30-36) % RDW 14.4 (11.6-14.8) % Plt Count 318 (150-400) X10^3/uL Neut % (Auto) 61.2 (50-75) % Lymph % (Auto) 26.5 (25-40) % Lewis % (Auto) 10.1 (3-14) % Eos % (Auto) 1.4 L (2-4) % Baso % (Auto) 0.8 (0-2) % Neut # (Auto) 7500 H (8100-1112) /uL Lymph # (Auto) 3200 (0583-2082) /uL Lewis # (Auto) 1200 H (0-900) /uL Eos # (Auto) 200 (0-450) /uL Baso # (Auto) 100 (0-100) /uL Sodium (137-145) mmol/L Potassium (3.4-5.1) mmol/L Chloride (98-107) mmol/L Carbon Dioxide (22-32) mmol/L BUN (7-17) mg/dL Creatinine (0.52-1.04) mg/dL Estimated GFR (>60) mL/min BUN/Creatinine Ratio (6-22) Glucose (70-100) mg/dL Calcium (8.4-10.2) mg/dL Total Bilirubin (0.2-1.3) mg/dL AST (14-36) IU/L ALT (9-52) IU/L Alkaline Phosphatase (38-126) U/L Total Creatine Kinase (30-135) U/L CK-MB (CK-2) CK-MB (CK-2) Rel Index Troponin I (0.01-0.034) ng/mL B-Natriuretic Peptide < 100 (<100) Total Protein (6.3-8.2) g/dL Albumin (3.5-5.0) g/dL Globulin (1.7-4.1) g/dL Albumin/Globulin Ratio (1.0-2.8) Procalcitonin (<0.5) ng/mL Urine RBC 1-5/hpf (0-5/HPF) Urine WBC 0-1/hpf (0-5/HPF) Ur Squamous Epith Cells 1-5 /hpf (0-5/HPF) Urine Bacteria None seen (None) Ur Culture Indicated? Cult not indicated Urine Test Negative (Negative) 02/01/19 02/01/19 02/01/19 Range/Units 12:45 12:45 12:45 WBC (4.5-11.0) X10^3/uL RBC (4.0-5.2) X10^6/uL Hgb (12.0-16.0) g/dL Hct (36-46) % MCV (80-100) fL MCH (26-34) PG MCHC (30-36) % RDW (11.6-14.8) % Plt Count (150-400) X10^3/uL Neut % (Auto) (50-75) % Lymph % (Auto) (25-40) % Lewis % (Auto) (3-14) % Eos % (Auto) (2-4) % Baso % (Auto) (0-2) % Neut # (Auto) (1832-0396) /uL Lymph # (Auto) (0824-3223) /uL Lewis # (Auto) (0-900) /uL Eos # (Auto) (0-450) /uL Baso # (Auto) (0-100) /uL Sodium 141 (137-145) mmol/L Potassium 3.9 (3.4-5.1) mmol/L Chloride 107 (98-107) mmol/L Carbon Dioxide 23 (22-32) mmol/L BUN 17 (7-17) mg/dL Creatinine 0.90 (0.52-1.04) mg/dL Estimated GFR > 60.0 (>60) mL/min BUN/Creatinine Ratio 18.9 (6-22) Glucose 92 (70-100) mg/dL Calcium 9.5 (8.4-10.2) mg/dL Total Bilirubin 0.5 (0.2-1.3) mg/dL AST 30 (14-36) IU/L ALT 42 (9-52) IU/L Alkaline Phosphatase 90 (38-126) U/L Total Creatine Kinase 68 (30-135) U/L CK-MB (CK-2) TNP CK-MB (CK-2) Rel Index TNP Troponin I < 0.012 (0.01-0.034) ng/mL B-Natriuretic Peptide (<100) Total Protein 7.7 (6.3-8.2) g/dL Albumin 4.0 (3.5-5.0) g/dL Globulin 3.7 (1.7-4.1) g/dL Albumin/Globulin Ratio 1.1 (1.0-2.8) Procalcitonin < 0.05 (<0.5) ng/mL Urine RBC (0-5/HPF) Urine WBC (0-5/HPF) Ur Squamous Epith Cells (0-5/HPF) Urine Bacteria (None) Ur Culture Indicated? Urine Test (Negative) 02/01/19 Range/Units 15:33 WBC (4.5-11.0) X10^3/uL RBC (4.0-5.2) X10^6/uL Hgb (12.0-16.0) g/dL Hct (36-46) % MCV (80-100) fL MCH (26-34) PG MCHC (30-36) % RDW (11.6-14.8) % Plt Count (150-400) X10^3/uL Neut % (Auto) (50-75) % Lymph % (Auto) (25-40) % Lewis % (Auto) (3-14) % Eos % (Auto) (2-4) % Baso % (Auto) (0-2) % Neut # (Auto) (9920-4999) /uL Lymph # (Auto) (2738-2378) /uL Lewis # (Auto) (0-900) /uL Eos # (Auto) (0-450) /uL Baso # (Auto) (0-100) /uL Sodium (137-145) mmol/L Potassium (3.4-5.1) mmol/L Chloride (98-107) mmol/L Carbon Dioxide (22-32) mmol/L BUN (7-17) mg/dL Creatinine (0.52-1.04) mg/dL Estimated GFR (>60) mL/min BUN/Creatinine Ratio (6-22) Glucose (70-100) mg/dL Calcium (8.4-10.2) mg/dL Total Bilirubin (0.2-1.3) mg/dL AST (14-36) IU/L ALT (9-52) IU/L Alkaline Phosphatase (38-126) U/L Total Creatine Kinase 68 (30-135) U/L CK-MB (CK-2) TNP CK-MB (CK-2) Rel Index TNP Troponin I < 0.012 (0.01-0.034) ng/mL B-Natriuretic Peptide (<100) Total Protein (6.3-8.2) g/dL Albumin (3.5-5.0) g/dL Globulin (1.7-4.1) g/dL Albumin/Globulin Ratio (1.0-2.8) Procalcitonin (<0.5) ng/mL Urine RBC (0-5/HPF) Urine WBC (0-5/HPF) Ur Squamous Epith Cells (0-5/HPF) Urine Bacteria (None) Ur Culture Indicated? Urine Test (Negative) Urine Dip Bedside Urine Glucose Negative Bedside Urine Bilirubin - Negative Bedside Urine Ketone - Negative Urine Specific [place] 1.015 Bedside Urine Occult Blood +/- Bedside Urine pH 8.5 Bedside Urine Protein - Negative Bedside Urine Urobilinogen - Negative Bedside Urine Nitrite - Negative Bedside Urine Leukocytes - Negative Esterase ECG Data Attestation: I personally reviewed and interpreted this ECG as follows: Prior ECG tracings: not available for review Interpretation: Artifact noted sinus rhythm rate [address] changes Discharge Plan Departure Patient Disposition: Home Clinical Impression: Atypical chest pain, Breath shortness, Bilateral impacted cerumen Discharge Date/Time: 02/01/19 17:36 Interventions: ED Discharge Assessment Last Done: 02/01/19 17:36 Instructions: DI for Cerumen Impaction, DI for Atypical Chest Pain, DI for Shortness of Breath Activity Restrictions/Additional Instructions: Today you had two normal sets of heart enzymes, a normal EKG, normal chest x- ray. We tried a medication for anxiety which seemed to help your shortness of breath. I believe that a lot of her symptoms are related to the upper respiratory tract infection your being treated for by your primary care provider. Please continue this antibiotic. I also suggest adding a Neti pot and Flonase. You can take the as needed medication for anxiety. Do not combine with Benadryl or other antihistamines. Come back to the emergency department for any acute concerns such as chest pain shortness of breath concern of heart attack or stroke. Please follow up with primary care provider soon as possible. Please rest and push fluids at home. Prescriptions: New hydroxyzine HCl 50 mg tablet 50 mg PO TID-QID PRN (Reason: anxiety) Qty: 20 RF: 0 No Action prochlorperazine maleate [Compazine] 10 MG tablet Qty: 0 RF: 0 gabapentin [Neurontin] 400 MG capsule Qty: 0 RF: 0 montelukast 10 MG tablet Qty: 0 RF: 0 fluoxetine [Sarafem] 20 MG tablet Qty: 0 RF: 0 sumatriptan succinate 6 mg/0.5 mL pen injector 6 mg SUBCUT PRN PRN (Reason: migraine headache) Qty: 10 RF: 3 propranolol 20 mg tablet 20 mg PO BID Qty: 90 RF: 2 verapamil 120 mg capsule,ext rel. pellets 24 hr 120 mg PO DAILY Qty: 30 RF: 2 prazosin 1 mg capsule 5 mg PO QHS RF: 0 clonazepam 0.5 mg tablet 0.25 mg PO ONCE Qty: 10 RF: 1 sumatriptan succinate 100 mg tablet 100 mg PO ONCE Qty: 10 RF: 1 verapamil 120 mg capsule,ext rel. pellets 24 hr 120 mg PO BID Qty: 60 RF: 2 Referrals: Waqar Ortiz MD [Primary Care Provider] - <Kitty Pat DO - Last Filed: 02/05/19 10:53> [facility] ED Attending [employer] Attestation: I was immediately available in the department for consultation. Documentation has been reviewed. I agree with assessment and plan.
[2019-02-01 13:20] LABS: B Type Natriuretic Peptide < 100 (<100)
[2019-02-01 13:24] LABS: Troponin I < 0.012 ng/mL (0.01-0.034)
[2019-02-01 13:29] LABS: Procalcitonin < 0.05 ng/mL (<0.5)
[2019-02-01 13:30] LABS: Pregnancy Test Urine Negative (Negative)
[2019-02-01 13:32] VITALS: BP 116/54; PULSE 63; RESP 14; TEMP 37.1; O2SAT 100
[2019-02-01 14:16] VITALS: BP 108/55; PULSE 75; RESP 18; O2SAT 100
[2019-02-01] MEDS: KETOROLAC 60 MG/2 ML VIAL 30 MG IV (14:21)
[2019-02-01 14:46] VITALS: BP 118/58; PULSE 69; RESP 12; O2SAT 97
[2019-02-01 15:42] VITALS: O2SAT 96
[2019-02-01] MEDS: ALBUTEROL/IPRATROPIUM 3 ML AMPUL INH (15:42)
[2019-02-01 15:49] LABS: Creatine Kinase 68 U/L (30-135)
[2019-02-01 16:02] LABS: Troponin I < 0.012 ng/mL (0.01-0.034)
--- NOTE | 2019-02-01 16:16 | PC.NURSE ---
flushed ears with a liter of saline. No cerumen out of R ear. Big piece out of left
[2019-02-01] MEDS: hydrOXYzine pamoate 25 MG CAPSULE 50 MG PO (16:48)
[2019-02-01 17:00] VITALS: BP 116/60; PULSE 65; RESP 16; O2SAT 98
== END 2019-02-01 17:36 | disposition home or self-care (01) ==
PROVIDERS: Emergency Medicine; Emergency Provider Nurse Practitioner Family; PCP Specialist
DX: R07.9 Chest pain, unspecified (principal); R06.02 Shortness of breath; H61.23 Impacted cerumen, bilateral
CPT/HCPCS: 36415; 36591; 71046; 80053; 81003; 81015; 81025; 82550; 83880; 84145; 84484; 85025; 93005; 93010; 94640; 96374; 99283; 99285; J1885

== ENCOUNTER → 2019-10-26 13:41 | Outpatient (CLI) | payer MEDICARE, SELFPAY ==
--- NOTE | 2019-10-26 | DI.CT.S_ITS ---
PROCEDURE: CT SINUS SCREEN WO CON INDICATIONS: Chronic sinusitis TECHNIQUE: Noncontrast 3.0 mm axial images acquired from the frontal sinuses to the mid-sella, with coronal and sagittal reformats. For radiation dose reduction, the following was used: automated exposure control, adjustment of mA and/or kV according to patient size. COMPARISON: None. FINDINGS: Image quality: Excellent. Maxillary Sinuses: No bony remodeling or destruction. Sinuses are clear. Ethmoid Air Cells: No bony remodeling or destruction. Sinuses are clear. Sphenoid Sinuses: No bony remodeling or destruction. Sinuses are clear. Frontal Sinuses: No bony remodeling or destruction. Sinuses are clear. Ostiomeatal Complexes: Ostiomeatal complexes are patent. No Gabriela cells. Miscellaneous: Visualized intra-orbital contents are normal. No shannan bullosa or paradoxical turbinate curvature. There is moderate rightward nasal septal deviation. IMPRESSION: No active paranasal sinus disease is seen. Moderate rightward nasal septal deviation. Dictated by: Luis Alfred M.D. on 10/26/2019 at 13:24 Approved by: Luis Alfred M.D. on 10/26/2019 at 13:25
== END ==
PROVIDERS: PCP Specialist; Referring Provider Otolaryngology; Visit Provider Otolaryngology
DX: J32.8 Other chronic sinusitis (principal); J34.89 Other specified disorders of nose and nasal sinuses; R51 Headache; J34.2 Deviated nasal septum
CPT/HCPCS: 70486

== ENCOUNTER → 2020-04-01 07:59 | Outpatient (CLI) | payer MEDICARE, SELFPAY ==
--- NOTE | 2020-04-01 | DI.MRI.S_ITS ---
PROCEDURE: MR KNEE LT WO CON INDICATIONS: Unspecified internal derangement of left knee TECHNIQUE: Noncontrast sagittal PD fast spin echo and T2 fast spin echo with fat saturation, sagittal 3-D FLASH with fat saturation; coronal T1 spin echo and PD fast spin echo with fat saturation, and axial PD fast spin echo with fat saturation through the knee. COMPARISON: None. FINDINGS: Image quality: Excellent. Menisci: Oblique tear involving posterior horn of medial meniscus is seen extending to the inferior articulating surface. There is no focal lateral meniscal tear. The meniscal root ligaments appear intact. Cruciate ligaments: The anterior and posterior cruciate ligaments appear intact. Medial structures: Low-grade proximal MCL sprain near its femoral insertion is seen. The posterior oblique ligament, semimembranosus tendon insertions, oblique popliteal ligament, and meniscocapsular junction appear intact. Visualized portions of the pes anserinus tendons appear normal. No abnormal bursal fluid. Lateral structures: The lateral collateral ligament, long and short heads of the biceps femoris tendon appear intact. The popliteus tendon appears normal; the popliteofibular ligament appears intact. The posterosuperior and anteroinferior popliteomeniscal fascicles appear intact. The arcuate and fabellofibular ligaments appear intact, on either side of the lateral inferior geniculate artery. Iliotibial band appears normal. Anterior structures: The quadriceps and patellar tendons appear intact. Patellar alignment is normal. No femoral trochlear dysplasia or ventral trochlear prominence. No edema in the infrapatellar fat pad. Bones and cartilage: No bone marrow contusions or fractures. 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 Joint space: There is small amount of knee joint fluid. No Stephens's cyst. Normal appearing synovial plicae are incidentally noted. IMPRESSION: 1. Oblique tear involving posterior horn of medial meniscus extending to the inferior articulating surface. No focal lateral meniscal tear. 2. Cruciate ligaments are intact. 3. Low-grade proximal MCL sprain near its femoral insertion. 4. 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 Dictated by: Yaw Baron M.D. on 04/01/2020 at 9:46 Approved by: Yaw Baron M.D. on 04/01/2020 at 10:01
== END ==
PROVIDERS: PCP Internal Medicine; Referring Provider Orthopaedic Surgery Foot and Ankle Surgery; Visit Provider Orthopaedic Surgery Foot and Ankle Surgery
DX: S83.242A Other tear of medial meniscus, current injury, left knee, initial encounter (principal); S83.412A Sprain of medial collateral ligament of left knee, initial encounter; M17.12 Unilateral primary osteoarthritis, left knee; M22.42 Chondromalacia patellae, left knee
CPT/HCPCS: 73721